=== PATIENT | male | born 2000 | race Caucasian/White ===

== ENCOUNTER 2019-01-13 11:51 | Day surgery (SDC) | payer OTHER, BC ==
[2019-01-13] MEDS ORDERED: Bupivacaine 0.25%/EPINEPHrine 1:200,000 10 ML SDV INJECT ONE (12:00)
[2019-01-13] MEDS ORDERED: Lactated Ringers 1,000 ML IV SCH ×2 (12:30→13:15)
[2019-01-13] MEDS ORDERED: Morphine 2 MG/ML Syringe IVPUSH PRN (13:00)
[2019-01-13] MEDS ORDERED: Sodium Chloride 0.9% 2.5 ML Syringe FLUSH PRN (13:01)
[2019-01-13] MEDS ORDERED: Sodium Chloride 0.9% 10 ML Syringe FLUSH PRN (13:01)
[2019-01-13] MEDS ORDERED: Propofol 200 MG/20 ML SDV ONE (13:05)
[2019-01-13] MEDS ORDERED: Lidocaine 2% 5 ML SDV ONE (13:05)
[2019-01-13] MEDS ORDERED: Midazolam 1 MG/ML 2 ML SDV ONE (13:05)
[2019-01-13] MEDS ORDERED: fentaNYL 100 MCG/2 ML SDV ONE (13:05)
--- NOTE | 2019-01-13 13:08 | PCM.HP ---
H&P History of Present Illness - General Date of Service: 01/13/19 Admit Problem/Dx: smash injury to the left thumb - dropped motor on it. Seen at [facility] and washed out some. Called us due to open fracture and transferred to the ER for surgical management. Source of Information: Patient History Limitations: Reports: No Limitations - History of Present Illness Initial Comments - Free Text/Narative: smash to left thumb Onset of Symptoms: Reports: Today, Sudden Location: Reports: Upper Extremity, Left Quality: Reports: Ache, Pressure Severity: Moderate Improves with: Reports: None Worsens with: Reports: None Associated Symptoms: Reports: No Other Symptoms Right Thumb Pain Score (Numeric/FACES): 6 - Related Data Allergies/Adverse Reactions: Allergies Allergy/AdvReac Type Severity Reaction Status Date / Time No Known Allergies Allergy Verified 01/13/19 12:07 Home Medications: Home Meds Dextroamphetamine/Amphetamine [Adderall 20 mg Tablet] 20 mg PO DAILY 01/13/19 [ History] Past Medical History Psychiatric History: Reports: ADD - Infectious Disease History Infectious Disease History: Reports: None - Past Surgical History HEENT Surgical History: Reports: Adenoidectomy, Myringotomy w Tube(s), Tonsillectomy Social & Family History - Family History Family Medical History: Noncontributory - Tobacco Use Smoking Status *Q: Current Every Day Smoker Years of Tobacco use: 3 Packs/Tins Daily: 1 - Caffeine Use Caffeine Use: Reports: Coffee, Soda - Alcohol Use Days Per Week of Alcohol Use: 1 Number of Drinks Per Day: 3 Total Drinks Per Week: 3 - Recreational Drug Use Recreational Drug Use: No H&P Review of Systems - Review of Systems: Review Of Systems: See Below General: Reports: No Symptoms HEENT: Reports: No Symptoms Pulmonary: Reports: No Symptoms Cardiovascular: Reports: No Symptoms Gastrointestinal: Reports: No Symptoms Genitourinary: Reports: No Symptoms Musculoskeletal: Reports: Hand Pain Skin: Reports: Wound (left thumb) Psychiatric: Reports: No Symptoms Neurological: Reports: No Symptoms Hematologic/Lymphatic: Reports: No Symptoms Immunologic: Reports: No Symptoms Exam - Exam Exam: See Below - Vital Signs Vital Signs: Last Vital Signs Temp 98.2 F 01/13/19 12:08 Pulse 68 01/13/19 12:08 Resp 15 01/13/19 12:08 BP 129/80 01/13/19 12:08 Pulse Ox 97 01/13/19 12:08 Weight: 171 lb 1.259 oz - Exam General: Alert, Oriented, Cooperative HEENT: EOMI Lungs: Clear to Auscultation, Normal Respiratory Effort Cardiovascular: Regular Rate, Regular Rhythm GI/Abdominal Exam: No Distention Extremities: Limited Range of Motion (with open wound and swelling of the left thumb) Skin: Warm, Dry Neuro Extensive - Mental Status: Alert, Oriented x3, Normal Mood/Affect Psychiatric: Alert, Normal Affect, Normal Mood - Patient Data Imaging Impressions Last 24 hrs: 3v of the left thumb via [facility] show a mildly displaced comminuted fracture of the left thumb proximal phalanx - intraarticular. *Q Meaningful Use (ADM) - VTE *Q VTE Criteria *Q: 1 VTE Anticoagulation Contraindications: Med/TX Not Indicated/Need - VTE Risk Assess *Q Each Risk Factor Represents 1 Point: Minor Surgery Planned Total Score 1 Point Risk Factors: 1 Each Risk Factor Represents 2 Points: None Total Score 2 Point Risk Factors: 0 Each Risk Factor Represents 3 Points: None Total Score 3 Point Risk Factors: 0 Each Risk Factor Represents 5 Points: None Total Score 5 Point Risk Factors: 0 Venous Thromboembolism Risk Factor Score *Q: 1 - Stroke *Q Anticoagulation Contraindications Stroke *Q: Med/TX Not Indicated/Need Antithrombotic Contraindications Stroke *Q: Med/TX Not Indicated/Need Thrombolytic/Fibrinolytic Contraindications Stroke *Q: Med/TX Not Indicated/Need Statin Contraindications Stroke *Q: Med/TX Not Indicated/Need Rehabilitation Assessment Contraindication *Q: Med/tx not indicated/need - AMI *Q Aspirin Contraindications AMI *Q: Med/TX Not Indicated/Need Thrombolytic/Fibrinolytic Contraindications IV (AMI) *Q: Med/tx not indicated/ need Statin Contraindications AMI *Q: Med/TX Not Indicated/Need - Problem List (1) Open fracture of proximal phalanx of left thumb SNOMED Code(s): 256931176 ICD Code: S62.512B - DISP FX OF PROXIMAL PHALANX OF LEFT THUMB, INIT FOR OPN FX Status: Acute Priority: High Current Visit: Yes Qualifiers: Encounter type: initial encounter Fracture alignment: displaced Qualified Code(s): S62.512B - Displaced fracture of proximal phalanx of left thumb, initial encounter for open fracture Problem List Initiated/Reviewed/Updated: Yes Orders Last 24hrs: Active Orders 24 hr Category Date Time Status Verify Patient Consent Obtain [RC] ASDIRECTED Care 01/13/19 12:00 Ordered Verify Patient Consent Obtain [RC] ASDIRECTED Care 01/13/19 13:01 Active Nothing Per Oral Diet [DIET] Diet 01/13/19 Breakfast Ordered Acetaminophen/HYDROcodone [[place] 325-5 MG] Med 01/14/19 12:40 Ordered 1 tab PO Q4H PRN Bupivacaine 0.25%/EPINEPHrine [Marcaine 0.25%/ Med 01/13/19 12:00 Once EPINEPHrine 1:200,000] 10 ml INJECT ONETIME ONE Lactated Ringers @ 125 MLS/HR(1000ml) Med 01/13/19 12:30 Ordered Lactated Ringers [Ringers, Lactated] 1,000 ml IV ASDIRECTED Lactated Ringers [Ringers, Lactated] 1,000 ml Med 01/13/19 13:15 Active IV ASDIRECTED Morphine Med 01/13/19 13:00 Ordered 1 mg IVPUSH Q1H PRN Sodium Chloride 0.9% [Saline Flush] Med 01/13/19 13:01 Active 10 ml FLUSH ASDIRECTED PRN Sodium Chloride 0.9% [Saline Flush] Med 01/13/19 13:01 Active 2.5 ml FLUSH ASDIRECTED PRN ceFAZolin [Ancef] 2 gm Med 01/14/19 08:00 Ordered Premix Bag 1 bag IV ONETIME Medication Administration Instruction [OM.PC] Routine Oth 01/13/19 13:01 Ordered Peripheral IV Insertion Adult [OM.PC] Routine Oth 01/13/19 13:01 Ordered Resuscitation Status Routine Resus Stat 01/13/19 13:00 Ordered Medication Orders Lactated Ringer's (Ringers, Lactated) 1,000 mls @ 125 mls/hr IV ASDIRECTED SADIE Sodium Chloride (Saline Flush) 10 ml FLUSH ASDIRECTED PRN PRN Reason: Keep Vein Open Sodium Chloride (Saline Flush) 2.5 ml FLUSH ASDIRECTED PRN PRN Reason: Keep Vein Open Assessment/Plan Comment:: To Or for washout and pin fixation. Ancef and pain medication. Informed consent obtained and risks and benefits discussed with him and his mother.
--- NOTE | 2019-01-13 13:10 | PCM.PREANE ---
Preanesthetic Assessment - Anesthesia/Transfusion/Family Hx Anesthesia History: Prior Anesthesia Without Reaction Family History of Anesthesia Reaction: No - Review of Systems General: No Symptoms Pulmonary: No Symptoms Cardiovascular: No Symptoms Gastrointestinal: No Symptoms Neurological: No Symptoms Other: Reports: None - Physical Assessment NPO Status Date: 01/12/19 O2 Sat by Pulse Oximetry: 97 Respiratory Rate: 15 Vital Signs: Last Vital Signs Temp 98.2 F 01/13/19 12:08 Pulse 68 01/13/19 12:08 Resp 15 01/13/19 12:08 BP 129/80 01/13/19 12:08 Pulse Ox 97 01/13/19 12:08 Height: 5 ft 11 in Weight: 77.6 kg ASA Class: 1E Mental Status: Alert & Oriented x3 Airway Class: Mallampati = 1 Dentition: Reports: Normal Dentition ROM/Head Extension: Full Lungs: Clear to Auscultation, Normal Respiratory Effort Cardiovascular: Regular Rate, Regular Rhythm - Allergies Allergies/Adverse Reactions: Allergies Allergy/AdvReac Type Severity Reaction Status Date / Time No Known Allergies Allergy Verified 01/13/19 12:07 - Blood Blood Available: No - Anesthesia Plan Pre-Op Medication Ordered: Other (abx) - Acknowledgements Anesthesia Type Planned: General Anesthesia Pt an Appropriate Candidate for the Planned Anesthesia: Yes Alternatives and Risks of Anesthesia Discussed w Pt/Guardian: Yes Pt/Guardian Understands and Agrees with Anesthesia Plan: Yes Additional Comments: PMH: open fracture PLAN: GA-LMA PreAnesthesia Questionnaire Psychiatric History: Reports: ADD - Infectious Disease History Infectious Disease History: Reports: None - Past Surgical History HEENT Surgical History: Reports: Adenoidectomy, Myringotomy w Tube(s), Tonsillectomy - SUBSTANCE USE Smoking Status *Q: Current Every Day Smoker Tobacco Use Within Last Twelve Months: Cigarettes Days Per Week of Alcohol Use: 1 Number of Drinks Per Day: 3 Total Drinks Per Week: 3 Recreational Drug Use History: No - HOME MEDS Home Medications: Home Meds Dextroamphetamine/Amphetamine [Adderall 20 mg Tablet] 20 mg PO DAILY 01/13/19 [ History] - CURRENT (IN HOUSE) MEDS Current Meds: Current Medications Hydrocodone Bitart/Acetaminophen ([place] 325-5 Mg) 1 tab PO Q4H PRN PRN Reason: Pain Lactated Ringer's (Ringers, Lactated) 1,000 mls @ 125 mls/hr IV ASDIRECTED SADIE Cefazolin Sodium/Dextrose 2 gm (/ Premix) 50 mls @ 100 mls/hr IV ONETIME ONE Stop: 01/14/19 08:29 Lactated Ringer's (Ringers, Lactated) 1,000 mls @ 125 mls/hr IV ASDIRECTED SADIE Morphine Sulfate (Morphine) 1 mg IVPUSH Q1H PRN PRN Reason: Pain (severe 7-10) Sodium Chloride (Saline Flush) 10 ml FLUSH ASDIRECTED PRN PRN Reason: Keep Vein Open Sodium Chloride (Saline Flush) 2.5 ml FLUSH ASDIRECTED PRN PRN Reason: Keep Vein Open Discontinued Medications Bupivacaine HCl/Epinephrine Bitart (Marcaine 0.25%/Epinephrine 1:200,000) 10 ml INJECT ONETIME ONE Stop: 01/13/19 12:01
[2019-01-13] MEDS ORDERED: Bupivacaine 0.25%/EPINEPHrine 1:200,000 10 ML SDV ONE (13:24)
[2019-01-13] MEDS ORDERED: Sodium Chloride 0.9% 20 ML ONE (13:40)
[2019-01-13] MEDS ORDERED: ceFAZolin 1 GM Vial ONE (13:40)
[2019-01-13] MEDS ORDERED: Dexamethasone 4 MG/ML 5 ML MDV ONE (13:50)
[2019-01-13] MEDS ORDERED: Ketorolac 30 MG/ML SDV ONE (13:50)
[2019-01-13] MEDS ORDERED: Ondansetron 4 MG/2 ML SDV ONE (13:50)
[2019-01-13] MEDS ORDERED: fentaNYL 100 MCG/2 ML SDV IVPUSH PRN (14:22)
--- NOTE | 2019-01-13 14:49 | PCM.POSTAN ---
POST ANESTHESIA ASSESSMENT - MENTAL STATUS Mental Status: Alert, Oriented - RESPIRATORY Respiratory Status: Respiratory Rate WNL, Airway Patent, O2 Saturation Stable - CARDIOVASCULAR CV Status: Pulse Rate WNL, Blood Pressure Stable - GASTROINTESTINAL GI Status: No Symptoms - POST OP HYDRATION Hydration Status: Adequate & Stable
--- NOTE | 2019-01-13 14:51 | PCM48HPAN ---
Post Anesthesia Note - EVALUATION WITHIN 48HRS OF ANESTHETIC Vital Signs in Normal Range: Yes Patient Participated in Evaluation: Yes Respiratory Function Stable: Yes Airway Patent: Yes Cardiovascular Function Stable: Yes Hydration Status Stable: Yes Pain Control Satisfactory: Yes Nausea and Vomiting Control Satisfactory: Yes Mental Status Recovered: Yes Resp Rate: 19 - COMMENTS/OBSERVATIONS Free Text/Narrative:: awake alert cooperative, no pain or nausea
--- NOTE | 2019-01-14 07:54 | PCM.OPNOTE ---
- General Post-Op/Procedure Note Date of Surgery/Procedure: 01/13/19 Operative Procedure(s): washout open fracture with reduction and kwire fixation of left thumb proximal phalanx open fracture Pre Op Diagnosis: left thumb proximal phalanx open fracture - intraarticular unstable Post-Op Diagnosis: Same Anesthesia Technique: General LMA, Local Primary Surgeon: Maxine Caro Raise Driller: Natalia Ellsworth Complications: None Condition: Good Free Text/Narrative:: Intake & Output 01/13/19 01/13/19 01/14/19 15:59 23:59 07:59 Intake Total 800 Balance 800
[2019-01-14] MEDS ORDERED: ceFAZolin 2 GM in Premix Bag 1 BAG IV ONE (08:00)
[2019-01-14] MEDS ORDERED: Acetaminophen/HYDROcodone 325-5 MG Tab PO PRN (12:40)
--- NOTE | 2019-01-17 00:37 | OR ---
SURGEON: JOI BENJAMIN MD DATE OF PROCEDURE: 01/13/2019 PREOPERATIVE DIAGNOSIS: Left thumb proximal phalanx open fracture, intra-articular and unstable. POSTOPERATIVE DIAGNOSIS: Left thumb proximal phalanx open fracture, intra-articular and unstable. PROCEDURE: Washout of open fracture with reduction and K-wire fixation of the left thumb proximal phalanx open fracture. DEPUTY SHERIFF BUILDING GUARD: HAYDEE Navarro REASON FOR AND ROLE OF DEPUTY SHERIFF BUILDING GUARD: Retraction, prepping, draping, positioning and closure assistance. ANESTHESIA: General LMA with local. INDICATIONS: Mr. Peres is a 18-year-old gentleman seen today in evaluation for an open fracture of the left thumb proximal phalanx. It is apparently unstable and unfortunately has an intra-articular component. Risks and benefits were discussed with him and his family and they were in agreement to proceed. Risks were including, but not limited to, bleeding, infection, damage to underlying or overlying structures, possible need for future interventions, possible scarring. PROCEDURE IN DETAIL: After informed consent was obtained and placed on the chart, the patient was brought to the operating theater in supine position. After adequate general LMA anesthesia was obtained, the area was blocked appropriately. The area was copiously irrigated for a small open communication of the dorsal aspect of the proximal phalanx. Once adequately irrigated with 1 L of normal saline, this was then used for visualization of the underlying fracture. This and the C-arm were used for direct visualization and two 0.45 K-wires were placed in a crossed fashion over the multiple pieces of the hamate fracture. Once adequately captured, the joint surface was appreciated to be intact and as smooth as possible. Fluoroscopic images were taken and the K-wires were trimmed and 0.45 Jurgan balls were placed on top. The patient was placed in a short-arm thumb spica splint after dressing the incision with a single 5-0 chromic stitch for the 1 cm open area and dressed with Xeroform. Once adequately in splint, it was fixated and the patient was transferred to the PACU in stable condition. FOLLOWUP INSTRUCTIONS: The patient was given a prescription for pain control and was instructed on judicious use considering his history. He was also instructed to take ibuprofen and Tylenol as well. We will see the patient in 2 weeks, sooner if any problems, questions, or concerns. MEERA / DOMIL /[id number]
== END 2019-01-13 16:03 | disposition home or self-care (01) ==
LOC: MW.ED 11:51 → MW.SDS 14:03
PROVIDERS: ATTEND Plastic Surgery
DX: S62.512B Displaced fracture of proximal phalanx of left thumb, initial encounter for open fracture (principal); F17.210 Nicotine dependence, cigarettes, uncomplicated; W20.8XXA Other cause of strike by thrown, projected or falling object, initial encounter; Z79.899 Other long term (current) drug therapy
CPT/HCPCS: 26727; 96361; 96374; 99283; J0690; J1100; J1885; J2001; J2250; J2270; J2405; J2704; J3010; J3490; J7120